=== PATIENT | male | born 1965 | race Caucasian/White ===

== ENCOUNTER 2016-11-07 00:59 | Emergency (ER) | payer MEDICARE ==
[2016-11-07 00:59] VITALS: BMI 40.8
[2016-11-07 01:19] VITALS: TEMP 98.7
[2016-11-07] MEDS ORDERED: Emtricitabine-Tenofovir 200 mg-300 mg Tab PO STA (02:00)
--- NOTE | 2016-11-07 02:03 | C.PDOC ---
History Of Present Illness <Lauren Parikh - Last Filed: 11/07/16 05:12> <Xiao Damian - Last Filed: 11/07/16 12:43> 51 yo male w/PMHx of CAD, card. arrhythmias, HTN, NIDDM hyperlipidemia, obesity , come in for medical evaluation. Pt reports, " was involved in sexual intercourse when condom broke and partner told me that he is not sure about his HIV status". Pt request HIV prophylactic treatment. Otherwise, pt denies any other active physical complaints. (Lauren Parikh) History Per: Patient <Lauren Parikh - Last Filed: 11/07/16 05:12> <RickieXiao - Last Filed: 11/07/16 12:43> Time Seen by Provider: 11/07/16 01:43 Chief Complaint (Nursing): Male Genitourinary Past Medical History Reviewed: Historical Data, Nursing Documentation, Vital Signs - Medical History PMH: Anxiety, CAD, Cardia Arrhythmia, Diabetes, Fractures (LEFT FOOT), HTN, Hypercholesterolemia, Peripheral Edema Denies: Chronic Kidney Disease Surgical History: CABG (FROM VEINS IN LEG) Family History: States: No Known Family Hx - Social History Hx Tobacco Use: No Hx Alcohol Use: No Hx Substance Use: No - Immunization History Hx Tetanus Toxoid Vaccination: Yes Hx Influenza Vaccination: Yes Hx Pneumococcal Vaccination: Yes <Lauren Parikh - Last Filed: 11/07/16 05:12> Review Of Systems Except As Marked, All Systems Reviewed And Found Negative. Constitutional: Negative for: Fever, Chills Eyes: Negative for: Vision Change ENT: Negative for: Throat Pain Cardiovascular: Negative for: Chest Pain Respiratory: Negative for: Cough Gastrointestinal: Negative for: Nausea, Vomiting, Abdominal Pain, Diarrhea Genitourinary: Negative for: Dysuria, Frequency, Incontinence, Hematuria, Penile Discharge, Scrotal Pain, Rash, Penile Pain Musculoskeletal: Negative for: Neck Pain, Back Pain Skin: Negative for: Rash Neurological: Negative for: Altered Mental Status <Lauren Parikh - Last Filed: 11/07/16 05:12> Physical Exam - Physical Exam Appears: Well, Non-toxic, No Acute Distress Skin: Normal Color, Warm, No Rash Throat: No Erythema, No Drooling Neck: Supple Chest: Symmetrical Cardiovascular: Rhythm Regular Respiratory: No Decreased Breath Sounds, No Accessory Muscle Use, No Stridor, No Wheezing Gastrointestinal/Abdominal: Soft, No Tenderness, No Distention, No Guarding Back: No CVA Tenderness Extremity: Normal ROM, No Pedal Edema Neurological/Psych: Oriented x3, Normal Speech <Lauren Parikh - Last Filed: 11/07/16 05:12> ED Course And Treatment - Laboratory Results Result Diagrams: 11/07/16 03:06 11/07/16 03:06 O2 Sat by Pulse Oximetry: 97 Progress Note: On re-eval, pt is afebrile, hemodynamicaly stable. Non-toxic. Abd: benign. neuorlogicaly intact. Pt was advised and ref. to F/u with PMD, ID in 1-2 days for re-eavl and further tx as need. return to ED if any worsening or new changes. <Lauren Parikh - Last Filed: 11/07/16 05:12> - Laboratory Results Result Diagrams: 11/07/16 03:06 11/07/16 03:06 <Xiao Damian - Last Filed: 11/07/16 12:43> Disposition Counseled Patient/Family Regarding: Studies Performed, Diagnosis, Need For Followup - Disposition Disposition Time: 02:10 <Lauren Parikh - Last Filed: 11/07/16 05:12> <Xiao Damian - Last Filed: 11/07/16 12:43> - Disposition Referrals: Cesar Connell MD [Staff Provider] - Rich Lopez MD [Medical Doctor] - Disposition: HOME/ ROUTINE Condition: STABLE Additional Instructions: Follow up with PMD and/or Infectious disease doctor for further evaluation and treatment as need Return to Ed if any worsening or new changes. Prescriptions: Emtricitabine/Tenofovir Diso [Truvada 200 MG-300 MG] 1 tab PO DAILY #3 tab Instructions: HIV Transmission (ED), Postexposure Prophylaxis (ED), HIV Infection (ED) Forms: [employer] (Polish) - Clinical Impression Clinical Impression: HIV exposure Addendum <Lauren Parikh - Last Filed: 11/07/16 05:12> <Xiao Damian - Last Filed: 11/07/16 12:43> Addendum: 11/07/16 12:35 D/W MICROBIO DEEPTHI: +RPR, TITER 1:8. PENDING FTA AB CONFIRM 11/07/16 12:42 PATIENT CALLED, ADVISED OF RPR RESULTS AND NEED TO RETURN TO RECEIVE ABX SHOT. VOICES UNDERSTANDING, STATES WILL RETURN TODAY. (Xiao Damian)
[2016-11-07 03:13] LABS: BASO % 0.3 % (0.0-2.0); EOS % 0.3 % (0.0-4.0); HEMATOCRIT 46.2 % (35.0-51.0); LYMPH # 2.6 K/uL (1.0-4.3); LYMPH % 24.5 % (20.0-40.0); MEAN CELL VOLUME 82.5 fL (80.0-94.0); MEAN CORPUSCULAR HEMOGLOBIN 27.6 pg (27.0-31.0); MEAN CORPUSCULAR HGB CONC 33.4 g/dL (33.0-37.0); MEAN PLATELET VOLUME 7.9 fL (7.2-11.7); MONO # 0.8 K/uL (0.0-0.8); MONO % 7.2 % (0.0-10.0); RED CELL DISTRIBUTION WIDTH 14.1 % (11.5-14.5); WHITE BLOOD COUNT 10.6 K/uL (4.8-10.8)
[2016-11-07 03:16] LABS: CHLORIDE 102 mmol/L (98-107); SODIUM 145 mmol/L (132-148)
[2016-11-07 03:17] LABS: POTASSIUM 3.6 mmol/L (3.6-5.2)
[2016-11-07 03:19] LABS: ALB/GLOB RATIO 1.2 (1.0-2.1); ALKALINE PHOSPHATASE 57 U/L (38-126); AMYLASE 58 U/L (30-110); AST/SGOT 29 U/L (17-59); BILIRUBIN,TOTAL 0.6 mg/dL (0.2-1.3); BLOOD UREA NITROGEN 15 mg/dL (9-20); CARBON DIOXIDE 25 mmol/L (22-30); GFR AFRICAN-AMERICAN > 60; GLUCOSE,RANDOM 123 mg/dL (75-110); TOTAL PROTEIN 7.5 g/dL (6.3-8.3)
[2016-11-07 03:20] LABS: ALT/SGPT 43 U/L (21-72); CALCIUM 9.3 mg/dl (8.6-10.4)
[2016-11-07 03:39] VITALS: BP 130/80; PULSE 80; RESP 14
[2016-11-07 05:12] VITALS: O2SAT 97
[2016-11-07 12:03] LABS: RAPID PLASMA REAGIN REACTIVE (NONREACTIVE)
== END 2016-11-07 03:39 | disposition home or self-care (01) ==
LOC: C.ER 00:59
DX: Z20.6 Contact with and (suspected) exposure to human immunodeficiency virus [HIV] (principal)

== ENCOUNTER 2016-11-07 19:41 | Emergency (ER) | payer MEDICARE ==
[2016-11-07 19:41] VITALS: BMI 40.8
[2016-11-07] MEDS ORDERED: Penicillin G Benzathine 2.4 Mill Unit/4 ml Syr IM ONE ×2 (20:10→20:28)
--- NOTE | 2016-11-07 21:27 | C.PDOC ---
History Of Present Illness 51 year old male who presents to the ER after he was called in for a positive RPR test. Patient was seen in the ER earlier for possible STD exposure and was found to have a positive RPR; he now presents for treatment. Patient denies penile discharge, testicular pain, rash, fever, or chills. Time Seen by Provider: 11/07/16 19:52 Chief Complaint (Nursing): Medical Clearance History Per: Patient History/Exam Limitations: no limitations Onset/Duration Of Symptoms: Hrs Current Symptoms Are (Timing): Still Present Reports Recently: Seen In ED Recent travel outside of the [place]: No Past Medical History Reviewed: Historical Data, Nursing Documentation, Vital Signs Vital Signs: Last Vital Signs Temp 98.8 F 11/07/16 22:14 Pulse 82 11/07/16 22:14 Resp 18 11/07/16 22:14 BP 179/100 H 11/07/16 22:14 Pulse Ox 97 11/07/16 22:14 - Medical History PMH: Anxiety, CAD, Cardia Arrhythmia, Diabetes, Fractures (LEFT FOOT), HTN, Hypercholesterolemia, Peripheral Edema Surgical History: CABG (FROM VEINS IN LEG) - [facility] Procedures APPLICATION OF SPLINT (02/25/14) CARPAL TUNNEL RELEASE (03/30/14) Family History: States: Unknown Family Hx - Social History Hx Tobacco Use: No Hx Alcohol Use: No Hx Substance Use: No - Immunization History Hx Tetanus Toxoid Vaccination: Yes Hx Influenza Vaccination: Yes Hx Pneumococcal Vaccination: Yes Review Of Systems Constitutional: Negative for: Fever, Chills Genitourinary: Negative for: Penile Discharge, Scrotal Pain, Rash, Penile Pain Physical Exam - Physical Exam Appears: Non-toxic, No Acute Distress Skin: Normal Color, Warm, Dry, No Rash Head: Atraumatic, Normacephalic Eye(s): bilateral: Normal Inspection Oral Mucosa: Moist Neck: Normal ROM Chest: Symmetrical, No Tenderness Cardiovascular: Rhythm Regular, No Friction Rub, No Murmur Respiratory: Normal Breath Sounds, No Rales, No Rhonchi, No Wheezing Gastrointestinal/Abdominal: Soft, No Tenderness Extremity: Normal ROM Neurological/Psych: Oriented x3, Normal Speech, Normal Cognition, Normal Motor Gait: Steady ED Course And Treatment O2 Sat by Pulse Oximetry: 100 (Room air) Pulse Ox Interpretation: Normal Medical Decision Making Medical Decision Making: Old records reviewed, the patient was last seen earlier today and was found to have (+) RPR test. 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 Patient does not know how long he has had the latent syphilis and will repeat the Bicillin in 1 week. Patient instructed to return to ER for follow up injection in 1 week. 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 I have reviewed the chart and agree that the record accurately reflects my personal performance of the history, physical exam, medical decision making, and the department course for this patient. I have also personally directed, reviewed, and agree with the discharge instructions and disposition.
[2016-11-07 22:15] VITALS: BP 179/100; PULSE 82; RESP 18; TEMP 98.8
[2016-11-07 23:02] VITALS: O2SAT 100
== END 2016-11-07 22:15 | disposition home or self-care (01) ==
LOC: C.ER 19:41
DX: A53.0 Latent syphilis, unspecified as early or late (principal)
CPT/HCPCS: 96372; 99282; J0561

== ENCOUNTER 2016-11-14 18:44 | Emergency (ER) | payer MEDICARE ==
[2016-11-14 18:45] VITALS: BMI 40.8
[2016-11-14 18:53] VITALS: BP 153/103; PULSE 90; RESP 16; TEMP 97.8; O2SAT 98
[2016-11-14] MEDS ORDERED: Penicillin G Benzathine 2.4 Mill Unit/4 ml Syr IM ONE ×2 (19:16→19:33)
--- NOTE | 2016-11-14 20:33 | C.PDOC ---
History Of Present Illness 51 year old male presents to the ED seeking second dose of bicillin injection after having positive RPR test. Patient denies dysuria, hematuria, penile discharge, rash, or any other physical complaints. Time Seen by Provider: 11/14/16 18:58 Chief Complaint (Nursing): Medical Clearance History Per: Patient History/Exam Limitations: no limitations Reports Recently: Seen In ED, Treated By A Physician Recent travel outside of the [place]: No Past Medical History Reviewed: Historical Data, Nursing Documentation, Vital Signs Vital Signs: Last Vital Signs Temp 97.8 F 11/14/16 18:52 Pulse 90 11/14/16 18:52 Resp 16 11/14/16 18:52 BP 153/103 H 11/14/16 18:52 Pulse Ox 98 11/14/16 20:33 - Medical History PMH: Anxiety, CAD, Cardia Arrhythmia, Diabetes, Fractures (LEFT FOOT), HTN, Hypercholesterolemia, Peripheral Edema Surgical History: CABG (FROM VEINS IN LEG) - [email or web address] Procedures APPLICATION OF SPLINT (02/25/14) CARPAL TUNNEL RELEASE (03/30/14) Family History: States: Unknown Family Hx - Social History Hx Tobacco Use: No Hx Alcohol Use: No Hx Substance Use: No - Immunization History Hx Tetanus Toxoid Vaccination: Yes Hx Influenza Vaccination: Yes Hx Pneumococcal Vaccination: Yes Review Of Systems Constitutional: Negative for: Fever, Chills Cardiovascular: Negative for: Chest Pain Respiratory: Negative for: Shortness of Breath Genitourinary: Negative for: Dysuria, Hematuria, Penile Discharge, Rash Physical Exam - Physical Exam Appears: Non-toxic, No Acute Distress Skin: Warm, Dry, No Rash Head: Atraumatic Eye(s): bilateral: Normal Inspection, PERRL, EOMI Oral Mucosa: Moist Neck: Supple Chest: Symmetrical, No Deformity Cardiovascular: Rhythm Regular Respiratory: Normal Breath Sounds, No Rhonchi, No Wheezing Neurological/Psych: Oriented x3 ED Course And Treatment O2 Sat by Pulse Oximetry: 98 (room air ) Progress Note: Patient was given bicillin injection. Disposition - Disposition Referrals: Rich Lopez MD [Medical Doctor] - Disposition: HOME/ ROUTINE Disposition Time: 20:30 Condition: GOOD Additional Instructions: Return within 1 week for the last dose of Penicillin without fail Follow up with the medical doctor within 1-2 days, Return if worsened. Instructions: Syphilis (ED) Forms: [employer] (Turkish) - Clinical Impression Clinical Impression: Positive RPR test, Latent syphilis - Emilyibe Statement The provider has reviewed the documentation as recorded by the Emilyibmichelle Mcdaniels All medical record entries made by the Emilyibmichelle were at my direction and personally dictated by me. I have reviewed the chart and agree that the record accurately reflects my personal performance of the history, physical exam, medical decision making, and the department course for this patient. I have also personally directed, reviewed, and agree with the discharge instructions and disposition.
== END 2016-11-14 20:38 | disposition home or self-care (01) ==
LOC: C.ER 18:44
DX: A53.0 Latent syphilis, unspecified as early or late (principal)
CPT/HCPCS: 96372; 99282; J0561

== ENCOUNTER 2016-11-21 18:39 | Emergency (ER) | payer MEDICARE ==
[2016-11-21 18:40] VITALS: BMI 40.8
[2016-11-21 19:11] VITALS: BP 147/90; PULSE 78; RESP 18; TEMP 98.5; O2SAT 100
[2016-11-21] MEDS ORDERED: Penicillin G Benzathine 2.4 Mill Unit/4 ml Syr IM ONE ×2 (19:15→19:28)
--- NOTE | 2016-11-21 19:27 | C.PDOC ---
History Of Present Illness 51 year old male presents to the ED seeking last third dose of Bicillin injection after having positive RPR test. Patient denies fever, dysuria, hematuria, penile discharge, rash, or any other physical complaints. Time Seen by Provider: 11/21/16 19:13 Chief Complaint (Nursing): Medical Clearance History Per: Patient History/Exam Limitations: no limitations Past Medical History Reviewed: Historical Data, Nursing Documentation, Vital Signs Vital Signs: Last Vital Signs Temp 98.5 F 11/21/16 19:07 Pulse 78 11/21/16 19:07 Resp 18 11/21/16 19:07 BP 147/90 11/21/16 19:07 Pulse Ox 100 11/21/16 19:28 - Medical History PMH: Anxiety, CAD, Cardia Arrhythmia, Diabetes, Fractures (LEFT FOOT), HTN, Hypercholesterolemia, Peripheral Edema Surgical History: CABG (FROM VEINS IN LEG) - [facility] Procedures APPLICATION OF SPLINT (02/25/14) CARPAL TUNNEL RELEASE (03/30/14) Family History: States: Unknown Family Hx - Social History Hx Tobacco Use: No Hx Alcohol Use: No Hx Substance Use: No - Immunization History Hx Tetanus Toxoid Vaccination: Yes Hx Influenza Vaccination: Yes Hx Pneumococcal Vaccination: Yes Review Of Systems Except As Marked, All Systems Reviewed And Found Negative. Physical Exam - Physical Exam Appears: Non-toxic, No Acute Distress Skin: Warm, Dry, No Rash Head: Atraumatic, Normacephalic Eye(s): bilateral: Normal Inspection Nose: Normal Oral Mucosa: Moist Neck: Normal ROM Chest: Symmetrical Extremity: Bilateral: Atraumatic, Normal Color And Temperature, Normal ROM Neurological/Psych: Oriented x3, Normal Speech Gait: Steady ED Course And Treatment O2 Sat by Pulse Oximetry: 100 Medical Decision Making Medical Decision Making: Patient with Positive RPR test and latent syphilis was treated with Bicillin. He is here for last dose, and offers no complaints. IM Bicillin administered. Disposition Counseled Patient/Family Regarding: Diagnosis, Need For Followup - Disposition Referrals: Rich Lopez MD [Medical Doctor] - Disposition: HOME/ ROUTINE Disposition Time: 19:30 Condition: STABLE Additional Instructions: You have received 3rd and last dose of Bicillin for treatment of latent syphilis. Please follow up with your doctor for further care Instructions: Penicillin G Benzathine (By injection) Forms: [employer] (Zambian) - POA Present On Arrival: None - Clinical Impression Clinical Impression: Positive RPR test, Latent syphilis, Medication administered - PA / INTERNATIONAL TRADE ANALYST / Resident Statement MD/DO has reviewed & agrees with the documentation as recorded.
== END 2016-11-21 19:48 | disposition home or self-care (01) ==
LOC: C.ER 18:39
DX: A53.0 Latent syphilis, unspecified as early or late (principal)
CPT/HCPCS: 96372; 99282; J0561

== ENCOUNTER 2018-05-03 14:22 | Inpatient (IN) | payer MEDICARE ==
[2018-05-03 14:22] VITALS: BMI 40.8
[2018-05-03] MEDS ORDERED: Labetalol 5 mg/ml Inj 20ML IV STA (15:40)
[2018-05-03 16:00] LABS: BASO # 0.1 K/uL (0.0-0.2); BASO % 0.6 % (0.0-2.0); EOS % 0.2 % (0.0-4.0); HEMOGLOBIN 15.6 g/dL (12.0-18.0); LYMPH # 2.5 K/uL (1.0-4.3); LYMPH % 25.7 % (20.0-40.0); MEAN CELL VOLUME 83.6 fL (80.0-94.0); MEAN CORPUSCULAR HEMOGLOBIN 27.5 pg (27.0-31.0); MEAN PLATELET VOLUME 8.5 fL (7.2-11.7); MONO # 0.7 K/uL (0.0-0.8); MONO % 7.4 % (0.0-10.0); NEUT # 6.3 K/uL (1.8-7.0); NEUT % 66.1 % (50.0-75.0); NRBC % 0.1 % (0.0-2.0); RBC 5.65 Mil/uL (4.40-5.90); RED CELL DISTRIBUTION WIDTH 13.4 % (11.5-14.5); WHITE BLOOD COUNT 9.6 K/uL (4.8-10.8)
[2018-05-03] MEDS ORDERED: Labetalol 5mg/ml (4ml) IV STA (16:03)
[2018-05-03 16:19] LABS: ALB/GLOB RATIO 1.5 (1.0-2.1); ALBUMIN 4.8 g/dL (3.5-5.0); ALT/SGPT 29 U/L (21-72); AST/SGOT 29 U/L (17-59); BLOOD UREA NITROGEN 12 mg/dL (9-20); CALCIUM 9.5 mg/dl (8.6-10.4); GFR NON-AFRICAN AMERICAN > 60; LIPASE 215 U/L (23-300)
--- NOTE | 2018-05-03 16:19 | C.PDOC ---
History Of Present Illness 52 y/o male with a PMHx of CAD, s/p CABG triple vessel repair 8 years ago, presents to the ED today complaining of 3 days of chest pressure and shortness of breath. Patient is also complaining of exacerbation of reflux symptoms, unre lieved with TUMs and antacids at home. he denies any fevers, chills, dizziness, syncope, palpitations, or weakness. He reports taking his aspirin today prior to arrival. Time Seen by Provider: 05/03/18 15:26 Chief Complaint (Nursing): Chest Pain History Per: Patient History/Exam Limitations: no limitations Onset/Duration Of Symptoms: Days (x3) Current Symptoms Are (Timing): Still Present Quality: Pressure Associated Symptoms: Dyspnea Alleviating Factors: None Past Medical History Reviewed: Historical Data, Nursing Documentation, Vital Signs Vital Signs: Last Vital Signs Temp 98.4 F 05/03/18 14:27 Pulse 84 05/03/18 14:27 Resp 18 05/03/18 14:27 BP 175/119 H 05/03/18 14:27 Pulse Ox 100 05/03/18 14:27 - Medical History PMH: Anxiety, CAD, Cardia Arrhythmia, Diabetes, Fractures (LEFT FOOT), HTN, Hypercholesterolemia, Peripheral Edema Denies: Chronic Kidney Disease Surgical History: CABG (FROM VEINS IN LEG) - [facility] Procedures APPLICATION OF SPLINT (02/25/14) CARPAL TUNNEL RELEASE (03/30/14) Family History: States: Unknown Family Hx - Social History Hx Tobacco Use: No Hx Alcohol Use: Yes Hx Substance Use: No - Immunization History Hx Tetanus Toxoid Vaccination: Yes Hx Influenza Vaccination: Yes Hx Pneumococcal Vaccination: No Review Of Systems Except As Marked, All Systems Reviewed And Found Negative. Constitutional: Negative for: Fever, Chills, Sweats Cardiovascular: Positive for: Chest Pain (pressure). Negative for: Palpitations Respiratory: Positive for: Shortness of Breath Gastrointestinal: Positive for: Nausea (consistent with prior reflux). Negative for: Abdominal Pain, Diarrhea Musculoskeletal: Negative for: Back Pain Neurological: Negative for: Weakness, Dizziness Physical Exam - Physical Exam Appears: Non-toxic, No Acute Distress, Other (Obese male) Skin: Warm, Dry, No Diaphoretic Head: Atraumatic, Normacephalic Eye(s): bilateral: Normal Inspection, PERRL, EOMI Oral Mucosa: Moist Neck: Normal ROM Chest: No Tenderness, Other (Healed chest wall surgical scar) Cardiovascular: Rhythm Regular, No Murmur Respiratory: Normal Breath Sounds, No Rales, No Rhonchi, No Wheezing Gastrointestinal/Abdominal: Soft, No Tenderness, No Distention Extremity: Bilateral: Atraumatic, Normal Color And Temperature, Normal ROM Pulses: Left Radial: Normal, Right Radial: Normal Neurological/Psych: Oriented x3, Normal Speech ED Course And Treatment - Laboratory Results Result Diagrams: 05/03/18 15:53 05/03/18 15:53 ECG: Interpreted By Me, Viewed By Me ECG Rhythm: Sinus Rhythm Interpretation Of ECG: normal intervals, normal axis, + Q-wave in lead 3, no ST or T wave abnormalities Rate From EC (bpm) O2 Sat by Pulse Oximetry: 100 (RA) Pulse Ox Interpretation: Normal - Other Rad CXR X-Ray: Read By Radiologist Interpretation: Accession No. : [id number]. Patient Name / ID : THANIA DELVALLE / [id number]. Exam Date : 05/03/2018 16:07:36 ( Approved ). Study Comment : Sex / Age : M / 52Y. Creator : Ozzy Maher MD. Dictator : Ozzy Maher MD. Chief Of Staff Doctor : Nanofabrication Specialist : Ozzy Maher MD. Approver2 : Report Date : 05/03/2018 16:32:56. My Comment : . Date of service: 05/03/2018. PROCEDURE: CHEST RADIOGRAPH, 1 VIEW. HISTORY: SOB. COMPARISON: Chest radiograph dated 08/05/2015. FINDINGS: LUNGS: Clear. PLEURA: No pneumothorax or pleural fluid seen. CARDIOVASCULAR: Prior sternotomy with sternal wires and surgical clips in place. Cardiomediastinal silhouette stably enlarged. OSSEOUS STRUCTURES: Unchanged. VISUALIZED UPPER ABDOMEN: Normal. OTHER FINDINGS: None. IMPRESSION: No active disease. Medical Decision Making Medical Decision Making: Impression: Chest Pain, Hx GERD Plan: --Labs w/ cardiac enzymes --EKG --CXR --40 mg IV Protonix --20 mg IV Labetalol Labs and imaging reviewed. 16:[address] Calvin, will admit to tele. Requests Dr. Jackson for cardiology consult. Disposition Discussed With : Marga Calvin Doctor Will See Patient In The: Hospital Counseled Patient/Family Regarding: Studies Performed, Diagnosis - Disposition Disposition: HOSPITALIZED Disposition Time: 16:42 Condition: FAIR - Clinical Impression Clinical Impression: Angina at rest - Scribe Statement The provider has reviewed the documentation as recorded by the Magan Granados Provider Attestation: All medical record entries made by the Magan were at my direction and personally dictated by me. I have reviewed the chart and agree that the record accurately reflects my personal performance of the history, physical exam, medical decision making, and the department course for this patient. I have also personally directed, reviewed, and agree with the discharge instructions and disposition.
[2018-05-03 16:31] LABS: B-TYPE NATRIURETIC PEPTIDE 40.2 pg/mL (0-900)
--- NOTE | 2018-05-03 16:36 | RAD ---
Date of service: 05/03/2018 PROCEDURE: CHEST RADIOGRAPH, 1 VIEW HISTORY: SOB COMPARISON: Chest radiograph dated 08/05/2015. FINDINGS: LUNGS: Clear. PLEURA: No pneumothorax or pleural fluid seen. CARDIOVASCULAR: Prior sternotomy with sternal wires and surgical clips in place. Cardiomediastinal silhouette stably enlarged. OSSEOUS STRUCTURES: Unchanged. VISUALIZED UPPER ABDOMEN: Normal. OTHER FINDINGS: None. IMPRESSION: No active disease.
[2018-05-03 18:52] VITALS: RESP 20
[2018-05-03] MEDS ORDERED: Dextrose 50% SYRINGE Inj (50 ml) IV PRN (18:58)
[2018-05-03] MEDS ORDERED: Glucagon Recombinant 1 mg Inj IM PRN (18:58)
[2018-05-03] MEDS: (Novolin R) Insulin Human Regular 100 units/ml vial SC SCH (21:30)
--- NOTE | 2018-05-03 22:21 | CP.PCM.CON ---
History of Present Illness - History of Present Illness History of Present Illness: 52 y/o male with a PMHx of CAD, s/p CABG triple vessel repair 8 years ago, presents to the ED today complaining of 3 days of chest pressure and shortness of breath. Patient is also complaining of exacerbation of reflux symptoms, unrelieved with TUMs and antacids at home. She denies any fevers, chills, dizziness, syncope, palpitations, or weakness. He reports taking his aspirin today prior to arrival. Chief Complaint (Nursing): Chest Pain History Per: Patient History/Exam Limitations: no limitations Onset/Duration Of Symptoms: Days (x3) Current Symptoms Are (Timing): Still Present Quality: Pressure Associated Symptoms: Dyspnea Alleviating Factors: None Past Medical History Reviewed: Historical Data, Nursing Documentation, Vital Signs Vital Signs: Last Vital Signs Temp 98.4 F 05/03/18 14:27 Pulse 84 05/03/18 14:27 Resp 18 05/03/18 14:27 BP 175/119 H 05/03/18 14:27 Pulse Ox 100 05/03/18 14:27 - Medical History PMH: Anxiety, CAD, Cardia Arrhythmia, Diabetes, Fractures (LEFT FOOT), HTN, Hypercholesterolemia, Peripheral Edema Denies: Chronic Kidney Disease Surgical History: CABG (FROM VEINS IN LEG) - [facility] Procedures APPLICATION OF SPLINT (02/25/14) CARPAL TUNNEL RELEASE (03/30/14) Family History: States: Unknown Family Hx - Social History Hx Tobacco Use: No Hx Alcohol Use: Yes Hx Substance Use: No - Immunization History Hx Tetanus Toxoid Vaccination: Yes Hx Influenza Vaccination: Yes Hx Pneumococcal Vaccination: No Review Of Systems Except As Marked, All Systems Reviewed And Found Negative. Constitutional: Negative for: Fever, Chills, Sweats Cardiovascular: Positive for: Chest Pain (pressure). Negative for: Palpitations Respiratory: Positive for: Shortness of Breath Gastrointestinal: Positive for: Nausea (consistent with prior reflux). Negative for: Abdominal Pain, Diarrhea Musculoskeletal: Negative for: Back Pain Neurological: Negative for: Weakness, Dizziness Physical Exam - Physical Exam Appears: Non-toxic, No Acute Distress, Other (Obese male) Skin: Warm, Dry, No Diaphoretic Head: Atraumatic, Normacephalic Eye(s): bilateral: Normal Inspection, PERRL, EOMI Oral Mucosa: Moist Neck: Normal ROM Chest: No Tenderness, Other (Healed chest wall surgical scar) Cardiovascular: Rhythm Regular, No Murmur Respiratory: Normal Breath Sounds, No Rales, No Rhonchi, No Wheezing Gastrointestinal/Abdominal: Soft, No Tenderness, No Distention Extremity: Bilateral: Atraumatic, Normal Color And Temperature, Normal ROM Pulses: Left Radial: Normal, Right Radial: Normal Neurological/Psych: Oriented x3, Normal Speech Past Patient History - Past Medical History & Family History Past Medical History?: Yes - Past Social History Smoking Status: Former Smoker - CARDIAC Hx Cardia Arrhythmia: Yes Hx Hypercholesterolemia: Yes Hx Hypertension: Yes Hx Peripheral Edema: Yes - PULMONARY Hx Respiratory Disorders: No - NEUROLOGICAL Hx Neurological Disorder: No - HEENT Hx HEENT Problems: Yes (GLASSES) - RENAL Hx Chronic Kidney Disease: No - ENDOCRINE/METABOLIC Hx Endocrine Disorders: Yes Hx Diabetes Mellitus Type 2: Yes - HEMATOLOGICAL/ONCOLOGICAL Hx Blood Disorders: No - INTEGUMENTARY Hx Dermatological Problems: No - MUSCULOSKELETAL/RHEUMATOLOGICAL Hx Falls: No Hx Fractures: Yes (LEFT FOOT) - GASTROINTESTINAL Hx Gastrointestinal Disorders: No - GENITOURINARY/GYNECOLOGICAL Hx Genitourinary Disorders: No - PSYCHIATRIC Hx Anxiety: Yes Hx Substance Use: No - SURGICAL HISTORY Hx Coronary Artery Bypass Graft: Yes (FROM VEINS IN LEG) - ANESTHESIA Hx Anesthesia: Yes Hx Anesthesia Reactions: No Hx Malignant Hyperthermia: No Meds Allergies/Adverse Reactions: Allergies Allergy/AdvReac Type Severity Reaction Status Date / Time No Known Allergies Allergy Verified 05/03/18 14:31 - Medications Medications: Current Medications Alprazolam (Xanax) 0.25 mg PO HS PRN PRN Reason: Anxiety Stop: 05/10/18 19:17 Amlodipine Besylate (Norvasc) 10 mg PO DAILY [facility] Aspirin (Ecotrin) 325 mg PO DAILY [facility] Carvedilol (Coreg) 25 mg PO Q12 [facility] Last Admin: 05/03/18 21:41 Dose: 25 mg Dextrose (Dextrose 50% Inj) 0 ml IV STAT PRN; Protocol PRN Reason: Hypoglycemia Protocol Dextrose (Glutose 15) 0 gm PO ONCE PRN; Protocol PRN Reason: Hypoglycemia Protocol Enoxaparin Sodium (Lovenox) 40 mg SC DAILY [facility] Glucagon (Glucagen Diagnostic Kit) 0 mg IM STAT PRN; Protocol PRN Reason: Hypoglycemia Protocol Glyburide (Micronase) 2.5 mg PO ACB [facility] Dextrose (Dextrose 5% In Water 1000 Ml) 1,000 mls @ 0 mls/hr IV .Q0M PRN; Protocol PRN Reason: Hypoglycemia Protocol Insulin Human Regular (Novolin R) 0 unit SC ACHS [facility]; Protocol Last Admin: 05/03/18 21:30 Dose: Not Given Lisinopril (Zestril) 20 mg PO DAILY [facility] Metformin HCl (Glucophage) 850 mg PO TIDCC [facility] Rosuvastatin Calcium (Crestor) 40 mg PO HS [facility] Last Admin: 05/03/18 21:41 Dose: 40 mg Tramadol HCl (Ultram) 50 mg PO BID PRN PRN Reason: Pain, moderate (4-7) Results - Vital Signs Recent Vital Signs: Last Vital Signs Temp 98.2 F 05/03/18 18:05 Pulse 90 05/03/18 18:42 Resp 20 05/03/18 18:05 BP 136/78 05/03/18 21:41 Pulse Ox 96 05/03/18 18:05 - Labs Result Diagrams: 05/03/18 15:53 05/03/18 15:53 Labs: Laboratory Results - last 24 hr 05/03/18 05/03/18 05/03/18 15:53 15:53 19:08 WBC 9.6 RBC 5.65 Hgb 15.6 Hct 47.3 MCV 83.6 MCH 27.5 MCHC 33.0 RDW 13.4 Plt Count 274 MPV 8.5 Neut % (Auto) 66.1 Lymph % (Auto) 25.7 Hickman % (Auto) 7.4 Eos % (Auto) 0.2 Baso % (Auto) 0.6 Neut # (Auto) 6.3 Lymph # (Auto) 2.5 Hickman # (Auto) 0.7 Eos # (Auto) 0.0 Baso # (Auto) 0.1 Sodium 141 Potassium 4.1 Chloride 103 Carbon Dioxide 28 Anion Gap 15 BUN 12 Creatinine 0.7 L Est GFR ( Amer) > 60 Est GFR (Non-Af Amer) > 60 Random Glucose 155 H D Hemoglobin A1c Calcium 9.5 Total Bilirubin 0.7 AST 29 ALT 29 Alkaline Phosphatase 58 Troponin I < 0.0120 NT-Pro-B Natriuret Pep 40.2 Total Protein 8.0 Albumin 4.8 Globulin 3.2 Albumin/Globulin Ratio 1.5 Triglycerides 129 D Cholesterol 97 LDL Cholesterol Direct 60 HDL Cholesterol 27 L Lipase 215 TSH 3rd Generation 0.75 05/03/18 19:08 WBC RBC Hgb Hct MCV MCH MCHC RDW Plt Count MPV Neut % (Auto) Lymph % (Auto) Hickman % (Auto) Eos % (Auto) Baso % (Auto) Neut # (Auto) Lymph # (Auto) Hickman # (Auto) Eos # (Auto) Baso # (Auto) Sodium Potassium Chloride Carbon Dioxide Anion Gap BUN Creatinine Est GFR ( Amer) Est GFR (Non-Af Amer) Random Glucose Hemoglobin A1c 7.4 H Calcium Total Bilirubin AST ALT Alkaline Phosphatase Troponin I NT-Pro-B Natriuret Pep Total Protein Albumin Globulin Albumin/Globulin Ratio Triglycerides Cholesterol LDL Cholesterol Direct HDL Cholesterol Lipase TSH 3rd Generation Assessment & Plan - Assessment and Plan (Free Text) Assessment: 52 M with hx of CAD s/p CABG x 3 HTN DM 2 Hyperlipidemia Admitted for epigastric discmfort Check ECHO Trop x 1 negative Check stress test
[2018-05-04] MEDS ORDERED: Caffeine Citrated **INJ** 20 MG/ML IV ONE (07:30)
[2018-05-04] MEDS: (Novolin R) Insulin Human Regular 100 units/ml vial SC SCH ×4 (07:49→22:17)
[2018-05-04] MEDS: Aspirin 325 mg EC Tablets PO SCH ×2 (10:02→11:59)
[2018-05-04] MEDS: Enoxaparin 40 mg Syringe SC SCH ×2 (10:02→11:59)
--- NOTE | 2018-05-04 11:09 | CP.PCM.PN ---
<Tereso Angeles - Last Filed: 05/04/18 17:44> Subjective - Date & Time of Evaluation Date of Evaluation: 05/04/18 Time of Evaluation: 11:08 - Subjective Subjective: PGY-2 Progress Note: Cardiology Service Dr. Jackson Patient seen after stress test. Per nursing no acute events occurred overnight. Patient denies any chest pain and the burning sensation in his chest has subsided. Objective - Vital Signs/Intake and Output Vital Signs (last 24 hours): Temp Pulse Resp BP Pulse Ox 97.9 F 88 20 145/88 99 05/04/18 07:00 05/04/18 08:00 05/04/18 07:00 05/04/18 07:00 05/04/18 07:00 - Medications Medications: Current Medications Alprazolam (Xanax) 0.25 mg PO HS PRN PRN Reason: Anxiety Stop: 05/10/18 19:17 Last Admin: 05/03/18 23:03 Dose: 0.25 mg Amlodipine Besylate (Norvasc) 10 mg PO DAILY [facility] Last Admin: 05/04/18 10:02 Dose: Not Given Aspirin (Ecotrin) 325 mg PO DAILY [facility] Last Admin: 05/04/18 10:02 Dose: Not Given Carvedilol (Coreg) 25 mg PO Q12 [facility] Last Admin: 05/04/18 10:01 Dose: Not Given Dextrose (Dextrose 50% Inj) 0 ml IV STAT PRN; Protocol PRN Reason: Hypoglycemia Protocol Dextrose (Glutose 15) 0 gm PO ONCE PRN; Protocol PRN Reason: Hypoglycemia Protocol Enoxaparin Sodium (Lovenox) 40 mg SC DAILY [facility] Last Admin: 05/04/18 10:02 Dose: Not Given Glucagon (Glucagen Diagnostic Kit) 0 mg IM STAT PRN; Protocol PRN Reason: Hypoglycemia Protocol Glyburide (Micronase) 2.5 mg PO ACB [facility] Last Admin: 05/04/18 06:51 Dose: Not Given Dextrose (Dextrose 5% In Water 1000 Ml) 1,000 mls @ 0 mls/hr IV .Q0M PRN; Protocol PRN Reason: Hypoglycemia Protocol Insulin Human Regular (Novolin R) 0 unit SC ACHS [facility]; Protocol Last Admin: 05/04/18 07:49 Dose: Not Given Lisinopril (Zestril) 20 mg PO DAILY [facility] Last Admin: 05/04/18 10:02 Dose: Not Given Metformin HCl (Glucophage) 850 mg PO TIDCC [facility] Last Admin: 05/04/18 07:49 Dose: Not Given Rosuvastatin Calcium (Crestor) 40 mg PO HS [facility] Last Admin: 05/03/18 21:41 Dose: 40 mg Tramadol HCl (Ultram) 50 mg PO BID PRN PRN Reason: Pain, moderate (4-7) Last Admin: 05/03/18 23:03 Dose: 50 mg - Labs Labs: 05/03/18 15:53 05/03/18 15:53 - Head Exam Head Exam: NORMAL INSPECTION - Eye Exam Eye Exam: EOMI, Normal appearance, PERRL Pupil Exam: NORMAL ACCOMODATION - ENT Exam ENT Exam: Mucous Membranes Moist, Normal Oropharynx - Respiratory Exam Respiratory Exam: Clear to Ausculation Bilateral - Cardiovascular Exam Cardiovascular Exam: REGULAR RHYTHM, +S1, +S2 - GI/Abdominal Exam GI & Abdominal Exam: Soft, Normal Bowel Sounds. absent: Hyperactive Bowel Sounds - Extremities Exam Extremities Exam: Full ROM. absent: Pedal Edema - Neurological Exam Neurological Exam: Alert, Awake, CN II-XII Intact - Psychiatric Exam Psychiatric exam: Normal Affect, Normal Mood Assessment and Plan - Assessment and Plan (Free Text) Assessment: 52 year old male with a past medical history of hypertension and cad s/p CABG presents to the hospital with chest pain. Plan: 1.Chest pain -Troponin (-)x3 -EKG: NSR @88 bpm -Lexiscan stress test Normal -Echo ordered. Will f/u with results. 2.HTN -Lisinopril 20mg PO Daily -Norvasc 10mg PO Daily 3. CAD -Crestor 40mg PO HS -Cavedilol 25mg PO Q12 [facility] 4. DM -ISS -Glyburide 2.5mg PO ACB ppx -lovenox Plan discussed with Attending Dr. Jackson. Tereso Angeles, PGY-2 <Sebastian Jackson - Last Filed: 05/05/18 00:06> Objective - Vital Signs/Intake and Output Vital Signs (last 24 hours): Temp Pulse Resp BP Pulse Ox 98.1 F 88 20 161/81 H 98 05/04/18 15:14 05/04/18 16:00 05/04/18 15:14 05/04/18 21:23 05/04/18 15:14 - Medications Medications: Current Medications Alprazolam (Xanax) 0.25 mg PO HS PRN PRN Reason: Anxiety Stop: 05/10/18 19:17 Last Admin: 05/04/18 22:50 Dose: 0.25 mg Amlodipine Besylate (Norvasc) 10 mg PO DAILY [facility] Last Admin: 05/04/18 11:58 Dose: 10 mg Aspirin (Ecotrin) 325 mg PO DAILY [facility] Last Admin: 05/04/18 11:59 Dose: 325 mg Carvedilol (Coreg) 25 mg PO Q12 [facility] Last Admin: 05/04/18 21:23 Dose: 25 mg Dextrose (Dextrose 50% Inj) 0 ml IV STAT PRN; Protocol PRN Reason: Hypoglycemia Protocol Dextrose (Glutose 15) 0 gm PO ONCE PRN; Protocol PRN Reason: Hypoglycemia Protocol Enoxaparin Sodium (Lovenox) 40 mg SC DAILY [facility] Last Admin: 05/04/18 11:59 Dose: 40 mg Glucagon (Glucagen Diagnostic Kit) 0 mg IM STAT PRN; Protocol PRN Reason: Hypoglycemia Protocol Glyburide (Micronase) 2.5 mg PO ACB [facility] Last Admin: 05/04/18 06:51 Dose: Not Given Dextrose (Dextrose 5% In Water 1000 Ml) 1,000 mls @ 0 mls/hr IV .Q0M PRN; Protocol PRN Reason: Hypoglycemia Protocol Insulin Human Regular (Novolin R) 0 unit SC ACHS [facility]; Protocol Last Admin: 05/04/18 22:17 Dose: Not Given Lisinopril (Zestril) 20 mg PO DAILY [facility] Last Admin: 05/04/18 11:58 Dose: 20 mg Metformin HCl (Glucophage) 850 mg PO TIDCC [facility] Last Admin: 05/04/18 17:02 Dose: 850 mg Rosuvastatin Calcium (Crestor) 40 mg PO HS [facility] Last Admin: 05/04/18 21:23 Dose: 40 mg Tramadol HCl (Ultram) 50 mg PO BID PRN PRN Reason: Pain, moderate (4-7) Last Admin: 05/04/18 17:11 Dose: 50 mg - Labs Labs: 05/03/18 15:53 05/03/18 15:53 Assessment and Plan - Assessment and Plan (Free Text) Plan: Patient seen and evaluated personally by me. Plan of care d/w the the resident a nd as documented
--- NOTE | 2018-05-04 11:24 | CARD ---
APPROVED REPORT Date of service: 05/03/2018 EKG Measurement Heart [id number] OR [id number] [id number] <Conclusion> Normal sinus rhythm Normal ECG
--- NOTE | 2018-05-04 18:41 | CP.PCM.CON ---
History of Present Illness - History of Present Illness History of Present Illness: Mr. Bautista is 52yo M with a PMHx significant for GERD, DM, HTN, and CAD s/p CABG in 2009, who presented to the ED yesterday with complaints of gnawing epigastric pain and heart burn. Patient explains that 4 days ago, early in the afternoon, he began having the pain and acid reflux which initially felt like his previous episodes of GERD. He tried taking Tums and Pepto Bismol at home without relief. As the day went on, the severity of the reflux continued to progress to the point where he was tasting "acid" in the back of his mouth. This feeling was associated shortly after eating meals. The symptoms continued for a few days and began to irritate his throat, prompting him to start "coughing". He denies actually coughing up any bilious fluid or emesis. Also denies any hemoptysis or sputum production. Patient denies having any chest pain or shortness of breath. He does not have any prior history of asthma/COPD, pneumonia or bronchitis. At this time, patient reports relief of his symptoms since starting protonix. No other complaints are noted at this time. Of note, he has not had an endoscopy in the past. Patient states that his typical diet consists of oatmeal, eggs, steak, chicken and rice and he tries to stay away from spicy foods. ROS: (+) epigastric pain, heart burn, "throat irritation" and cough All other systems are negative unless stated in HPI PMHx: T2DM, HTN, CAD (s/p CABG x 3 in 2009), HLD, anxiety, GERD PSHx: Left knee arthroscopy in 2016 Code status: Full code Social Hx: Previous smoker, quit >7 years ago, denies EtOH or other illicit drug use Allergies: NKDA Home Medications: Coreg 25mg BID, Atorvastatin 80mg QD, Lisinopril 40m QD, Norvasc 10mg QD, Metformin 850mg BID, Glyburide 5mg QD, Xanax 0.25 prn, Ultram 50mg prn, K-CL 10mEq Exam: Vitals: O2: 99% on RA, T: 98.5 BP: 152/105 HR: 88 RR: 20 Gen: No acute distress. AAOx3 HEENT: Moist mucosa. Card: RRRR. Lungs: No tachpnea or respiratory distress. Symmetric chest excursions. CTA bilaterally. No wheezing, rales or rhonchi. No active coughing. No crepitus noted. Abd: Soft, non-distended. Normal bowel sounds. No tenderness to palpation. A&P Summary: Mr. Bunch is a 52yo M with h/o GERD, DM, HTN and CAD (s/p CABG) who presents with 4 days of gnawing epigastric pain and acid reflux. Patient has a history of GERD for many years, which was typically controlled by tums/pepto bismol, but never had an episode this severe. He reports relief since starting protonix in the hospital. 1. Heartburn - CXR (05/03): No active pulmonary disease, sternotomy wires present. - Given the patient's history and clinical presentation, this is likely not of pulmonary etiology - Recommend GI consult for endoscopy and long-term GERD management - Cardiology on board given patient's extensive cardiac history - Of note, patient's DM was diagnosed 8 years ago. He denies having any prior episodes of emesis after eating, difficulty digesting foods. Gastroparesis unlikely. - Will sign off. Please don't hesitate to re-consult if necessary Past Patient History - Past Medical History & Family History Past Medical History?: Yes - Past Social History Smoking Status: Former Smoker - CARDIAC Hx Cardia Arrhythmia: Yes Hx Hypercholesterolemia: Yes Hx Hypertension: Yes Hx Peripheral Edema: Yes - PULMONARY Hx Respiratory Disorders: No - NEUROLOGICAL Hx Neurological Disorder: No - HEENT Hx HEENT Problems: Yes (GLASSES) - RENAL Hx Chronic Kidney Disease: No - ENDOCRINE/METABOLIC Hx Endocrine Disorders: Yes Hx Diabetes Mellitus Type 2: Yes - HEMATOLOGICAL/ONCOLOGICAL Hx Blood Disorders: No - INTEGUMENTARY Hx Dermatological Problems: No - MUSCULOSKELETAL/RHEUMATOLOGICAL Hx Fractures: Yes (LEFT FOOT) - GASTROINTESTINAL Hx Gastrointestinal Disorders: No - GENITOURINARY/GYNECOLOGICAL Hx Genitourinary Disorders: No - PSYCHIATRIC Hx Anxiety: Yes Hx Substance Use: No - SURGICAL HISTORY Hx Coronary Artery Bypass Graft: Yes (FROM VEINS IN LEG) - ANESTHESIA Hx Anesthesia: Yes Hx Anesthesia Reactions: No Hx Malignant Hyperthermia: No Meds Allergies/Adverse Reactions: Allergies Allergy/AdvReac Type Severity Reaction Status Date / Time No Known Allergies Allergy Verified 05/03/18 14:31 - Medications Medications: Current Medications Alprazolam (Xanax) 0.25 mg PO HS PRN PRN Reason: Anxiety Stop: 05/10/18 19:17 Last Admin: 05/03/18 23:03 Dose: 0.25 mg Amlodipine Besylate (Norvasc) 10 mg PO DAILY [facility] Last Admin: 05/04/18 11:58 Dose: 10 mg Aspirin (Ecotrin) 325 mg PO DAILY [facility] Last Admin: 05/04/18 11:59 Dose: 325 mg Carvedilol (Coreg) 25 mg PO Q12 [facility] Last Admin: 05/04/18 11:58 Dose: 25 mg Dextrose (Dextrose 50% Inj) 0 ml IV STAT PRN; Protocol PRN Reason: Hypoglycemia Protocol Dextrose (Glutose 15) 0 gm PO ONCE PRN; Protocol PRN Reason: Hypoglycemia Protocol Enoxaparin Sodium (Lovenox) 40 mg SC DAILY [facility] Last Admin: 05/04/18 11:59 Dose: 40 mg Glucagon (Glucagen Diagnostic Kit) 0 mg IM STAT PRN; Protocol PRN Reason: Hypoglycemia Protocol Glyburide (Micronase) 2.5 mg PO ACB [facility] Last Admin: 05/04/18 06:51 Dose: Not Given Dextrose (Dextrose 5% In Water 1000 Ml) 1,000 mls @ 0 mls/hr IV .Q0M PRN; Protocol PRN Reason: Hypoglycemia Protocol Insulin Human Regular (Novolin R) 0 unit SC ACHS [facility]; Protocol Last Admin: 05/04/18 17:13 Dose: Not Given Lisinopril (Zestril) 20 mg PO DAILY [facility] Last Admin: 05/04/18 11:58 Dose: 20 mg Metformin HCl (Glucophage) 850 mg PO TIDCC [facility] Last Admin: 05/04/18 17:02 Dose: 850 mg Rosuvastatin Calcium (Crestor) 40 mg PO HS [facility] Last Admin: 05/03/18 21:41 Dose: 40 mg Tramadol HCl (Ultram) 50 mg PO BID PRN PRN Reason: Pain, moderate (4-7) Last Admin: 05/04/18 17:11 Dose: 50 mg Results - Vital Signs Recent Vital Signs: Last Vital Signs Temp 98.1 F 05/04/18 15:14 Pulse 82 05/04/18 15:14 Resp 20 05/04/18 15:14 BP 156/103 H 05/04/18 15:14 Pulse Ox 98 01/23/19 15:14 - Labs Result Diagrams: 05/03/18 15:53 05/03/18 15:53 Labs: Laboratory Results - last 24 hr 05/03/18 05/03/18 05/03/18 19:08 19:08 21:18 POC Glucose (mg/dL) 187 H Hemoglobin A1c 7.4 H Troponin I Triglycerides 129 D Cholesterol 97 LDL Cholesterol Direct 60 HDL Cholesterol 27 L TSH 3rd Generation 0.75 05/03/18 05/04/18 05/04/18 22:10 06:28 07:15 POC Glucose (mg/dL) 114 H Hemoglobin A1c Troponin I < 0.0120 < 0.0120 Triglycerides Cholesterol LDL Cholesterol Direct HDL Cholesterol TSH 3rd Generation 05/04/18 05/04/18 11:57 16:29 POC Glucose (mg/dL) 223 H 147 H Hemoglobin A1c Troponin I Triglycerides Cholesterol LDL Cholesterol Direct HDL Cholesterol TSH 3rd Generation
--- NOTE | 2018-05-05 04:49 | HP ---
The patient is a 52-year-old male. The patient was seen and examined at the bedside on 05/04/2018. CHIEF COMPLAINT: Chest pain. HISTORY OF PRESENT ILLNESS: Mr. Jc Bunch is a 52-year-old male with past medical history of coronary artery disease, SP CABG triple-vessel repair eight years ago, presented to the ED with complaining of about three days of chest pressure and shortness of breath. The patient is also complaining of exacerbation of flatus symptoms, relieved with Tums and antacids at home. He denied any fevers, chills, dizziness, syncope, palpitation or weakness. He took aspirin before he has to come. No hematuria or hematochezia. Having chest pain with dyspnea. PAST MEDICAL HISTORY: Anxiety, coronary artery disease, cardiac arrhythmia, diabetes mellitus, fracture of the left foot, hypertension, hypercholesterolemia, peripheral edema, history of CABG. FAMILY HISTORY: Father and mother are noncontributory. SOCIAL HISTORY: Tobacco, no. Alcohol abuse, yes. Substance abuse, no. REVIEW OF SYSTEMS: The patient was seen and examined at bedside in his room. Family was on the bedside. The patient's pressure is better. Gassy feeling, acidic feeling also better. No fever. No chills. No hematuria or hematochezia. No swelling of the legs. No headache or dizziness. No coughing. No shortness of breath but sometime having dyspnea. PHYSICAL EXAMINATION: VITAL SIGNS: Temperature 98.4, pulse 84, respiratory rate 18, and blood pressure 175/119. HEENT: Head is normocephalic and atraumatic. Eyes PERRLA. Extraocular muscles are intact. Conjunctivae clear. Nose patent. NECK: Supple. No carotid bruits. No JVD or thyromegaly. CHEST: Bilaterally symmetrical. HEART: S1 and S2 positive. LUNGS: Clear to auscultation. ABDOMEN: Soft. Bowel sounds present. No organomegaly. EXTREMITIES: No edema. No cyanosis. NEUROLOGIC: The patient is awake and alert. Moving all four extremities. No focal deficits. LABORATORY DATA: White blood cells 9.6, hemoglobin 15.6, hematocrit 47.2 and platelets 274. Glucose 185, troponin 0.012 x2. Sodium 141, potassium 4, BUN 12, creatinine 0.7, glucose 185, hemoglobin A1c is 7.4. 27. ASSESSMENT AND PLAN: Mr. Jc Bunch is a 52-year-old male with hyperglycemia, uncontrolled diabetes mellitus, hemoglobin A1c of 7.4 with a history of multiple medical problems including anxiety, coronary artery disease, cardiac arrhythmia, flatus, fracture of left foot, hypertension, hypercholesterolemia, peripheral edema, history of coronary artery bypass grafting from vein in the leg. We admitted the patient, did cardiac enzymes, did electrocardiogram, chest x-ray. Seen by the overhauler bus truck, Dr. Sebastian Jackson. Pulmonary embolism protocol was done, CAT scan of the chest. Pulmonary consult was called with Dr. Deejay Shaw. The patient went for stress test. Lexiscan stress test is normal. Echocardiogram ordered with followup for hypertension. Continue lisinopril and Norvasc. Started the patient on Crestor 40 mg, carvedilol 25 mg, and on the sliding scale getting glyburide. Lovenox given for deep venous thrombosis prophylaxis. Appreciated Dr. Jackson's input. Repeat labs. We will follow up. Marga Calvin MD
--- NOTE | 2018-05-05 05:48 | CARD ---
APPROVED REPORT Date of service: 05/04/2018 Protocol: LEXISCAN Test Type: LEXISCAN Test Indications: CP Medical History: CP Target HR: 170 bpm Resting ECG: NSR Resting Heart Rate: 86 bpm Resting Blood Pressure: 140/80mmHg submaximum (85%): 145 bpm TEST SUMMARY PREINFSNHYPERV.07:[id number]/80.0. INFUSIONDOSE 100:300.00.01.083/.0. FPCVFCRGC14:[id number]/80.0. PROCEDURE Pharmacologic stress testing was performed using 0.4mg per 5ml of regadenoson given intravenously over 7-10 seconds. POST EXERCISE Reason for Termination: Protocol Completed Target HR: No Max HR: 83 bpm 62% of Maximum Predicted HR: 170 bpm Exercise duration: 00:30 min:sec, 0 Stage Exercise capacity: 1.0METs Max Blood Pressure: 144/80mmHg Blood Pressure response to exercise: normal resting BP - appropriate response Heart Rate response to exercise: appropriate Chest Pain: No, none Angina index: 0 Arrhythmia: No, none ST Change: No, none Deviation: 0 mm INTERPRETATION Stress EKG Conclusion: NEGATIVE LEXISCAN STRESS TEST NORMAL BP RESPONSE TO LEXISCAN NUCLEAR STUDIES TO BE READ SEPARATELY EXAM: Myocardial Perfusion REST/STRESS Imaging Protocol The imaging protocol used to acquire images was Rest Tc-99m/stress Tc-99m 1 day Rest Spect myocardial perfusion imaging was performed in supine position 45 minutes following the injection of 13.1 mCi of Tc-99 Myoview. Gated Stress Spect was performed 45 minutes after intravenous 33.0 mCi Tc-99 Myoview injection. The images were gated to evaluate regional wall motion and calculate ventricular ejection fraction.Images were reconstructed using backfilter projection method in short horizontal and verticle long axis. Spect slices were generated. RESTING DATA VQA667.80daAS2.40L/min1/3 Pk. Filling Rate0.42EDV/sec LV Time to Pk. Filling Pbkj502.17msec ESV84.00mlMyocardial Unwh486.00gLV Time to Pk. Ejection Cluq885.49msec Pk. Fill Rate2.42EDV/secAv. Heart Rate79.00bpm EF49.00%Pk. Emptying Rate2.72ESV/sec STRESS DATA YAI549.55pcYG6.40L/min ESV73.00mlMyocardial Lseu383.00g Pk. Fill Rate2.97EDV/sec EF61.00%Pk. Emptying Rate2.84ESV/sec 1/3 Pk. Filling Rate0.79EDV/secRegional WT score at stress:0.00 LV Time to Pk. Filling Rate:185.65msecRegional WM score at stress:0.00 LV Time to Pk. Ejection Rate:199.35msecSummed WT score at stress:10.00 Av. Heart Rate84.00bpmSummed WM score at stress:12.00 LV Perf. Quant 17 Seg. SSS6.00 17 Seg. SRS1.00 17 Seg. SDS5.00 Stress Defect Extent (% LAD)21.30Rest Defect Extent (% LAD)19.40Rev. Defect Extent (% LAD)1.30 Stress Defect Extent (% LCX)0.00Rest Defect Extent (% LCX)6.30Rev. Defect Extent (% LCX)0.00 Stress Defect Extent (% RCA)0.00Rest Defect Extent (% RCA)0.00Rev. Defect Extent (% RCA)0.00 Stress Defect Extent (% ELIZABETH)8.30Rest Defect Extent (% ELIZABETH)10.40Rev. Defect Extent (% ELIZABETH)0.90 Other Information Quality:Good Left Ventricle LV Function:Left ventricle systolic function is low normal. The Ejection Fraction is 50-55%. Conclusion 1. No stress induced ischemia. EF 50-55%
[2018-05-05] MEDS: (Novolin R) Insulin Human Regular 100 units/ml vial SC SCH (08:53)
[2018-05-05] MEDS: Aspirin 325 mg EC Tablets PO SCH (09:47)
[2018-05-05] MEDS: Enoxaparin 40 mg Syringe SC SCH (10:00)
--- NOTE | 2018-05-05 11:48 | CARD ---
APPROVED REPORT Date of service: 05/05/2018 EXAM: Two-dimensional and M-mode echocardiogram with Doppler and color Doppler. Other Information Quality : GoodRhythm : INDICATION Chest Pain Palpitations fever/angina Surgery/Intervention CABG: RISK FACTORS Hypertension Obesity Diabetes 2D DIMENSIONS IVSd1.2 (0.7-1.1cm)LVDd5.1 (3.9-5.9cm) PWd0.9 (0.7-1.1cm)LA Rhvsyx76 (18-58mL) LVDs3.6 (2.5-4.0cm)FS (%) 30.0 % LVEF (%)57.0 (>50%)LVEF (Garvey's)55.20 % M-Mode DIMENSIONS Left Atrium (MM)4.60 (2.5-4.0cm)IVSd1.46 (0.7-1.1cm) Aortic Root3.94 (2.2-3.7cm)LVDd4.87 (4.0-5.6cm) Aortic Cusp Exc.2.46 (1.5-2.0cm)PWd1.10 (0.7-1.1cm) FS (%) 28 %LVDs3.53 (2.0-3.8cm) LVEF (%)53 (>50%) Mitral Valve MV E Nzohpytj43.1cm/sMV A Nnqnddjm99.6cm/sE/A ratio0.9 TDI Lateral E' Peak V8.67cm/sMedial E' Peak V7.77cm/sE/Lateral E'8.0 E/Medial E'8.9 LEFT VENTRICLE The left ventricle is normal size. There is mild concentric left ventricular hypertrophy. The Ejection Fraction is 50-55%. Transmitral Doppler flow pattern is Grade I-abnormal relaxation pattern. RIGHT VENTRICLE The right ventricle is normal size. The right ventricular systolic function is normal. ATRIA The left atrium is moderately dilated. The right atrium size is normal. The interatrial septum is intact with no evidence for an atrial septal defect. AORTIC VALVE The aortic valve is normal in structure. No aortic regurgitation is present. MITRAL VALVE The mitral valve is normal in structure. There is no mitral valve regurgitation noted. TRICUSPID VALVE The tricuspid valve is normal in structure. There is trace tricuspid regurgitation. PULMONIC VALVE The pulmonary valve is normal in structure. GREAT VESSELS The aortic root is normal in size. The IVC is normal in size and collapses >50% with inspiration. PERICARDIAL EFFUSION There is no pericardial effusion. <Conclusion> The left ventricle is normal size. There is mild concentric left ventricular hypertrophy. The Ejection Fraction is 50-55%. Transmitral Doppler flow pattern is Grade I-abnormal relaxation pattern. The left atrium is moderately dilated. The aortic root is normal in size. There is no pericardial effusion. normal valves & function.
[2018-05-05] MEDS ORDERED: Pantoprazole 40 mg EC Tab PO SCH (15:45)
[2018-05-05 16:17] VITALS: BP 154/102; PULSE 76; TEMP 98.3; O2SAT 99
--- NOTE | 2018-05-05 17:38 | CP.PCM.PN ---
Subjective - Date & Time of Evaluation Date of Evaluation: 05/05/18 Time of Evaluation: 17:38 - Subjective Subjective: alert and orientedx3, no sob or chest pains, complaits of heart burn on and off. Objective - Vital Signs/Intake and Output Vital Signs (last 24 hours): Temp Pulse Resp BP Pulse Ox 98.3 F 76 20 154/102 H 99 05/05/18 15:00 05/05/18 15:00 05/05/18 15:00 05/05/18 15:00 05/05/18 15:00 - Labs Labs: 05/03/18 15:53 05/03/18 15:53 Assessment and Plan - Assessment and Plan (Free Text) Assessment: Patient admitted with chest pain, seen and examined. Alert and orientedx3, denie s sob or chest pains, cleared by the cardiologyst. Discussed with DR Calvin, plan to discharge home today, advised to follow up with GI as outpatient for possible GERD. protonix given to try at home.
== END 2018-05-05 16:50 | disposition home or self-care (01) | DRG 303 ==
LOC: C.ER 14:22 → C.6T 16:41
PROVIDERS: ADMIT Internal Medicine; ATTEND Internal Medicine
DX: I25.119 Atherosclerotic heart disease of native coronary artery with unspecified angina pectoris (principal); E66.8 Other obesity; Z71.3 Dietary counseling and surveillance; E78.00 Pure hypercholesterolemia, unspecified; I10 Essential (primary) hypertension; F41.9 Anxiety disorder, unspecified; Z95.1 Presence of aortocoronary bypass graft; E11.65 Type 2 diabetes mellitus with hyperglycemia; K21.9 Gastro-esophageal reflux disease without esophagitis; Z87.891 Personal history of nicotine dependence